=== PATIENT | female | born 1995 | race Caucasian/White ===

== ENCOUNTER → 2025-05-05 | Outpatient (CLI) | payer OTHER, SELFPAY ==
[2025-05-05 13:44] LABS: hCG Titer Quant., Serum 275 mIU/mL (<9 non-preg)
== END | disposition home or self-care (01) ==
LOC: BWCLAB 12:09
PROVIDERS: Student in an Organized Health Care Education/Training Program; Visit Provider Obstetrics & Gynecology
DX: O20.0 Threatened abortion (principal); Z3A.00 Weeks of gestation of pregnancy not specified
CPT/HCPCS: 36415; 84702